=== PATIENT | female | born 1970 | race Caucasian/White ===

== ENCOUNTER 2018-11-23 13:27 | Emergency (ER) | payer SELFPAY ==
[~2018-11-23] VITALS: Ht 162.6 cm; Wt 63.5 kg
[2018-11-23 13:59] LABS: BASO % 0 % (0-3); EOS # 0.2 x10^3/uL (0.0-0.7); EOS % 2 % (0-3); HEMATOCRIT 42.8 % (36.0-47.0); HEMOGLOBIN 14.6 g/dL (12.0-15.5); LYMPH # 2.4 x10^3/uL (1.0-4.8); LYMPH % 27 % (24-48); MEAN CORPUSCULAR HEMOGLOBIN 30 pg (25-35); MEAN CORPUSCULAR HGB CONC 34 g/dL (31-37); MEAN CORPUSCULAR VOLUME 89 fL (79-100); MONO # 0.7 x10^3/uL (0.0-1.1); MONO % 8 % (0-9); NEUT # 5.7 x10^3uL (1.8-7.7); NEUT % 63 % (31-73); PLATELET COUNT 188 x10^3/uL (140-400); RED CELL DISTRIBUTION WIDTH 15.1 % (11.5-14.5)
[2018-11-23 14:12] LABS: CALCIUM 9.7 mg/dL (8.5-10.1); CREATININE 0.8 mg/dL (0.6-1.0); GFR 76.9; POTASSIUM 3.4 mmol/L (3.5-5.1)
[2018-11-23 14:15] LABS: ACETAMIN < 2 mcg/ml (10-30); ETHANOL 168 mg/dL (0-10); SALIC 5.5 mg/dL (2.8-20.0)
[2018-11-23 14:18] LABS: ALBUMIN 4.4 g/dL (3.4-5.0); ALBUMIN/GLOBULIN RATIO 1.3 (1.0-1.7); MAGNESIUM 2.3 mg/dL (1.8-2.4); PROTHROMBIN TIME PATIENT 12.2 SEC (11.7-14.0); TOTAL BILIRUBIN 0.2 mg/dL (0.2-1.0); TOTAL PROTEIN 7.9 g/dL (6.4-8.2)
--- NOTE | 2018-11-23 14:30 | RAD ---
EXAM: CT Head without IV contrast CLINICAL HISTORY: Headache COMPARISON: None. TECHNIQUE: Routine CT of the head without contrast. Soft tissues and bone windows were reviewed. PQRS compliance statement - One or more of the following individualized dose reduction techniques were utilized for this study: 1. Automated exposure control 2. Adjustment of the mA and/or kV according to patient size 3. Use of iterative reconstruction technique FINDINGS: There is no evidence of hemorrhage, mass or extra-axial fluid collection. Boston-white differentiation is maintained with no evidence of edema. There is no mass effect or shift of the intracranial structures. The ventricles, basilar cisterns and cortical sulci are normal in size and configuration for the patients stated age. The cerebellum and brainstem are unremarkable. The calvarium demonstrates no evidence of fracture or focal lesion. There is normal aeration of the visualized paranasal sinuses and mastoid air cells. The visualized portions of the orbits are normal. IMPRESSION: No evidence for acute intracranial process. Electronically signed by: Peña Mcdaniel MD (11/23/2018 2:27 PM) [id number]
--- NOTE | 2018-11-23 15:41 | EKG ---
[facility] [address] [place] [address] Test Date: 2018-11-23 Test Time: 13:43:42 Pat Name: AINSLEY WHITE Department: Room: Gender: F [employer]: : 1970 Requested By: EDUARDO TSAI Order Number: [id number] Reading MD: Measurements Intervals [place] Rate: 90 P: 41 VT: 160 QRS: 42 QRSD: 76 T: 47 QT: 358 QTc: 442 Interpretive Statements SINUS RHYTHM NORMAL ECG RI6.01 No previous ECG available for comparison
[2018-11-23 16:40] LABS: BILIRUBIN,URINE NEGATIVE (NEG); CLARITY,URINE CLEAR; COLOR,URINE YELLOW; NITRITE,URINE NEGATIVE (NEG); PH,URINE 6.5; PROTEIN,URINE NEGATIVE (NEG-TRACE); UROBILINOGEN,URINE 0.2 mg/dL (0.2 mg/dL)
[2018-11-23 16:47] LABS: BARBITURATES NEG (NEG); BENZODIAZEPINES NEG (NEG); CANNABINOIDS NEG (NEG); COCAINE NEG (NEG); METHADONE NEG (NEG); OPIATES NEG (NEG); PHENCYCLIDINE NEG (NEG)
[2018-11-23 16:49] LABS: AMPHETAMINE/METHAMPHETAMINE NEG (NEG)
[2018-11-23 17:10] LABS: BACTERIA,URINE FEW /HPF (0-FEW); RBC,URINE 0 /HPF (0-2); SQUAMOUS EPITHELIAL CELL,UR OCC /LPF; WBC,URINE OCC /HPF (0-4)
[2018-11-23] MEDS ORDERED: PRED-220 PO (17:39)
[2018-11-23] MEDS ORDERED: AMOX500T PO (17:39)
--- NOTE | 2018-11-23 17:39 | PHYS DOC ---
Past Medical History Past Medical History: No Pertinent History Past Surgical History: Hip Replacement, Lumbar Laminectomy, Other Additional Past Surgical Histo: FEMUR Additional Information: 2 MONTHS AGO Alcohol Use: None Additional Information: PT HAS THE SMELL OF ALCOHOL ON HER BREATH Drug Use: None Adult General Chief Complaint Chief Complaint: NEURO SYMPTOMS/DEFICITS [facility] Patient is a 48 year old female presented ER today for evaluation of left-sided ear pain, left-sided neck pain, left-sided facial tingling sensation with left arm pain and tingling sensation seen Friday morning. She denies any headache, no slurred speech, no blurry vision. Patient denies any recent or numbness in her lower extremity. Patient felt like she had an ear infection. She says she was swimming with her boyfriend on Friday in a swimming pool, they were horsing around but she did not fall down. She denies any chest pain, no trouble breathing. Review of Systems Review of Systems Constitutional: Denies fever or chills [] Eyes: Denies change in visual acuity, redness, or eye pain [] HENT: Denies nasal congestion or sore throat. Positive for left side ear pain. Respiratory: Denies cough or shortness of breath [] Cardiovascular: No additional information not addressed in HPI [] GI: Denies abdominal pain, nausea, vomiting, bloody stools or diarrhea [] : Denies dysuria or hematuria [] Musculoskeletal: Denies back pain or joint pain, Positive for LEFT SIDE NECK MUSCLE PAIN. Integument: Denies rash or skin lesions [] Neurologic: Denies headache, Positive for left side facial tingling sensation, left arm pain with tingling sensation. NO BLURRY VISION, NO SLURRED SPEECH. Endocrine: Denies polyuria or polydipsia [] All other systems were reviewed and found to be within normal limits, except as documented in this note. Allergies Allergies Allergies Coded Allergies Type Severity Reaction Last Updated Verified No Known Drug Allergies 11/23/18 No Physical Exam Physical Exam Constitutional: Well developed, well nourished, no acute distress, non-toxic appearance. Smell of alcohol on her breath. HENT: Normocephalic, atraumatic, bilateral external ears normal, oropharynx moist, no oral exudates, nose normal. LEFT TYMPANIC MEMBRANE IS BULGING WITH FLUID BEHIND IT. Eyes: PERRLA, EOMI, conjunctiva normal, no discharge. [] Neck: Normal range of motion, THERE IS NO MIDLINE VERTEBRAL BODY TENDERNESS TO PALPATION, LEFT SIDE PARASPINAL MUSCLE TENDER AND TENSE. ] Cardiovascular:Heart rate regular rhythm, no murmur [] Lungs & Thorax: Bilateral breath sounds clear to auscultation [] Abdomen: Bowel sounds normal, soft, no tenderness, no masses, no pulsatile masses. [] Skin: Warm, dry, no erythema, no rash. [] Back: No tenderness, no CVA tenderness. [] Extremities: No tenderness, no cyanosis, no clubbing, ROM intact, no edema. Left upper extremity is mildly weaker than right side, no sensory deficit. EQUAL STRENGTH AND SENSATION IN LEGS. Neurologic: Alert and oriented X 3, normal motor function, normal sensory function, no focal deficits noted. NO FACIAL DROOP, NO FACIAL DEFICIT, SYMMETRICAL FACIAL EXPRESSION. Psychologic: Affect normal, judgement normal, mood normal. [] Current Patient Data Vital Signs Vital Signs Date Time Temp Pulse Resp B/P (MAP) Pulse Ox O2 Delivery O2 Flow Rate FiO2 11/23/18 16:41 72 98 11/23/18 16:11 24 11/23/18 13:28 97.7 115/87 (96) Room Air 97.7 Lab Values Laboratory Tests Test 11/23/18 13:50 11/23/18 13:56 11/23/18 16:25 White Blood Count 9.0 x10^3/uL (4.0-11.0) Red Blood Count 4.80 x10^6/uL (3.50-5.40) Hemoglobin 14.6 g/dL (12.0-15.5) Hematocrit 42.8 % (36.0-47.0) Mean Corpuscular Volume 89 fL (79-100) Mean Corpuscular Hemoglobin 30 pg (25-35) Mean Corpuscular Hemoglobin Concent 34 g/dL (31-37) Red Cell Distribution Width 15.1 % (11.5-14.5) H Platelet Count 188 x10^3/uL (140-400) Neutrophils (%) (Auto) 63 % (31-73) Lymphocytes (%) (Auto) 27 % (24-48) Monocytes (%) (Auto) 8 % (0-9) Eosinophils (%) (Auto) 2 % (0-3) Basophils (%) (Auto) 0 % (0-3) Neutrophils # (Auto) 5.7 x10^3uL (1.8-7.7) Lymphocytes # (Auto) 2.4 x10^3/uL (1.0-4.8) Monocytes # (Auto) 0.7 x10^3/uL (0.0-1.1) Eosinophils # (Auto) 0.2 x10^3/uL (0.0-0.7) Basophils # (Auto) 0.0 x10^3/uL (0.0-0.2) Prothrombin Time 12.2 SEC (11.7-14.0) Prothrombin Time INR 0.9 (0.8-1.1) PTT 27 SEC (24-38) Sodium Level 140 mmol/L (136-145) Potassium Level 3.4 mmol/L (3.5-5.1) L Chloride Level 103 mmol/L (98-107) Carbon Dioxide Level 20 mmol/L (21-32) L Anion Gap 17 (6-14) H Blood Urea Nitrogen 8 mg/dL (7-20) Creatinine 0.8 mg/dL (0.6-1.0) Estimated GFR (Cockcroft-Gault) 76.9 BUN/Creatinine Ratio 10 (6-20) Glucose Level 130 mg/dL (70-99) H Calcium Level 9.7 mg/dL (8.5-10.1) Magnesium Level 2.3 mg/dL (1.8-2.4) Total Bilirubin 0.2 mg/dL (0.2-1.0) Aspartate Amino Transferase (AST) 11 U/L (15-37) L Alanine Aminotransferase (ALT) 26 U/L (14-59) Alkaline Phosphatase 59 U/L (46-116) Troponin I Quantitative < 0.017 ng/mL (0.000-0.055) Total Protein 7.9 g/dL (6.4-8.2) Albumin 4.4 g/dL (3.4-5.0) Albumin/Globulin Ratio 1.3 (1.0-1.7) Lipase 113 U/L (73-393) Salicylates Level 5.5 mg/dL (2.8-20.0) Salicylate Last Dose Date Unknown Salicylate Last Dose Time Unknown Acetaminophen Level < 2 mcg/ml (10-30) L Acetaminophen Last Dose Date Unknown Acetaminophen Last Dose Time Unknown Ethyl Alcohol Level 168 mg/dL (0-10) H Glucose (Fingerstick) 142 mg/dL (70-99) H Urine Color Yellow Urine Clarity Clear Urine pH 6.5 Urine Specific [place] <=1.005 Urine Protein Negative mg/dL (NEG-TRACE) Urine Glucose (UA) Negative mg/dL (NEG) Urine Ketones (Stick) Negative mg/dL (NEG) Urine Blood Negative (NEG) Urine Nitrite Negative (NEG) Urine Bilirubin Negative (NEG) Urine Urobilinogen Dipstick 0.2 mg/dL (0.2 mg/dL) Urine Leukocyte Esterase Negative (NEG) Urine RBC 0 /HPF (0-2) Urine WBC Occ /HPF (0-4) Urine Squamous Epithelial Cells Occ /LPF Urine Bacteria Few /HPF (0-FEW) Urine Opiates Screen Neg (NEG) Urine Methadone Screen Neg (NEG) Urine Barbiturates Neg (NEG) Urine Phencyclidine Screen Neg (NEG) Urine Amphetamine/Methamphetamine Neg (NEG) Urine Benzodiazepines Screen Neg (NEG) Urine Cocaine Screen Neg (NEG) Urine Cannabinoids Screen Neg (NEG) Urine Ethyl Alcohol Pos (NEG) Laboratory Tests 11/23/18 13:50 Laboratory Tests 11/23/18 13:50 EKG EKG EKG RATE OF 90 BPM, SINUS RHYTHM, NO STEMI.[] Radiology/Procedures Radiology/Procedures [][facility] [address] [place] [address] IMAGING REPORT Signed PATIENT: AINSLEY WHITE ACCOUNT: [id number] : 1970 LOCATION: ER AGE: 48 SEX: F EXAM STATUS: PRE ER ORD. PHYSICIAN: EDUARDO TSAI DO REASON: HEADACHE PROCEDURE: CT HEAD WO CONTRAST EXAM: CT Head without IV contrast CLINICAL HISTORY: Headache COMPARISON: None. TECHNIQUE: Routine CT of the head without contrast. Soft tissues and bone windows were reviewed. PQRS compliance statement - One or more of the following individualized dose reduction techniques were utilized for this study: 1. Automated exposure control 2. Adjustment of the mA and/or kV according to patient size 3. Use of iterative reconstruction technique FINDINGS: There is no evidence of hemorrhage, mass or extra-axial fluid collection. Boston-white differentiation is maintained with no evidence of edema. There is no mass effect or shift of the intracranial structures. The ventricles, basilar cisterns and cortical sulci are normal in size and configuration for the patients stated age. The cerebellum and brainstem are unremarkable. The calvarium demonstrates no evidence of fracture or focal lesion. There is normal aeration of the visualized paranasal sinuses and mastoid air cells. The visualized portions of the orbits are normal. IMPRESSION: No evidence for acute intracranial process. Electronically signed by: Peña Rodriguez MD (11/23/2018 2:27 PM) [id number] DICTATED and SIGNED BY: PEÑA RODRIGUEZ MD DATE: 11/23/18 1427 Course & Med Decision Making Course & Med Decision Making Pertinent Labs and Imaging studies reviewed. (See chart for details) This physician recommended for patient to be admitted to the hospital for further evaluation HOWEVER, SHE DECLINED. SHE WAS ADAMANTLY SAID THAT SHE DOES NOT HAVE MONEY TO PAY FOR INPATIENT EVALUATION. SHE WANTED TO BE RELEASED, WILL FOLLOW UP WITH HER FAMILY DOCTOR. PATIENT ALSO DECLINED XRAY OR CT SCAN OF HER CERVICAL SPINE BECAUSE SHE DOES NOT THINK ANYTHING WRONG WITHER HER NECK. Dragon Disclaimer Dragon Disclaimer This electronic medical record was generated, in whole or in part, using a voice recognition dictation system. Departure Departure Impression: Primary Impression: Cervical radiculopathy, acute Additional Impression: Left otitis media Disposition: 01 HOME, SELF-CARE Condition: STABLE Referrals: NO PCP (PCP) FOLLOW UP WITH YOUR DOCTOR FOR REEVALUATION IN 2 DAYS Patient Instructions: Cervical Radiculopathy, Otitis Media, Adult Scripts Azithromycin (ZITHROMAX) 250 Mg Tablet 1 PKG PO UD, #6 TAB Prov: EDUARDO TSAI DO 11/23/18 Prednisone (PREDNISONE ) 10 Mg Tablet 40 MG PO DAILY for 7 Days, #28 TAB 0 Refills Prov: EDUARDO TSAI DO 11/23/18 Problem Qualifiers EDUARDO TSAI DO Nov 23, 2018 17:39
[2018-11-23 17:41] VITALS: BP 99/61
[2018-11-23] MEDS ORDERED: AZIT250T PO (17:45)
== END 2018-11-23 18:01 | disposition home or self-care (01) ==
LOC: ER 13:27
DX: H66.92 Otitis media, unspecified, left ear (principal); M54.12 Radiculopathy, cervical region; M79.602 Pain in left arm; R20.2 Paresthesia of skin; Z96.649 Presence of unspecified artificial hip joint
CPT/HCPCS: 36415; 70450; 80053; 80307; 80329; 81001; 82962; 83690; 83735; 84484; 85025; 85610; 85730; 93005; 99285; G0480